=== PATIENT | male | born 1975 | race Caucasian/White ===

== ENCOUNTER 2016-03-11 11:12 | Emergency (ER) | payer SELFPAY ==
[~2016-03-11] VITALS: Ht 180.3 cm; Wt 90.7 kg
[~2016-03-11 11:12] MED LIST: CEPH-264 PO; DEXT20TA2 PO; HYDR-971 PO; HYDR16TA PO; IBUP-1007 PO; IBUP-1027 PO; LORA2TAB PO; ONDA4TAB7 PO; OXYC-323 PO; OXYC5TAB PO; PHEN100C PO; SENN-37 PO; SULF1TAB24 PO
[2016-03-11 11:27] VITALS: BP 145/68
--- NOTE | 2016-03-11 12:31 | PHYS DOC ---
Past Medical History Past Medical History: Anxiety Additional Past Medical Histor: adhd; endocarditis; chronic back pain. Past Surgical History: Other Additional Past Surgical Histo: hernia, left collar bone Alcohol Use: None Drug Use: None Adult General Chief Complaint Chief Complaint: PAIN ON URINATION [facility] HPI Patient is a 41 year old male presents emergency department stating that he urinated only twice this week. Patient states that he has been forcing fluids. He states this morning when he got up he was unable to urinate as well. He states that he had torn some warm water over the penile area in order to get himself to urinate. Patient denies any history of prostate problems. He denies any family history of prostate issues. Patient does state he has a history of smoking. Patient denies any he now drainage or discharge. Review of Systems Review of Systems Constitutional: Denies fever or chills [] Eyes: Denies change in visual acuity, redness, or eye pain [] HENT: Denies nasal congestion or sore throat [] Respiratory: Denies cough or shortness of breath [] Cardiovascular: No additional information not addressed in HPI [] GI: Denies abdominal pain, nausea, vomiting, bloody stools or diarrhea [] : dysuria denies hematuria [] Musculoskeletal: Denies back pain or joint pain [] Integument: Denies rash or skin lesions [] Neurologic: Denies headache, focal weakness or sensory changes [] Allergies Allergies Allergies Coded Allergies Type Severity Reaction Last Updated Verified ketorolac Adverse Reaction Mild headache 01/20/16 Yes tramadol Adverse Reaction Mild headache 01/20/16 Yes Physical Exam Physical Exam Constitutional: Well developed, well nourished, no acute distress, non-toxic appearance. [] HENT: Normocephalic, atraumatic, bilateral external ears normal, oropharynx moist, no oral exudates, nose normal. [] Eyes: PERRLA, EOMI, conjunctiva normal, no discharge. [] Neck: Normal range of motion, no tenderness, supple, no stridor. [] Cardiovascular:Heart rate regular rhythm, no murmur [] Lungs & Thorax: Bilateral breath sounds clear to auscultation [] Abdomen: Bowel sounds normal, soft, no tenderness, no masses, no pulsatile masses. [] Skin: Warm, dry, no erythema, no rash. [] Back: No tenderness Extremities: No tenderness, no cyanosis, no clubbing, ROM intact, no edema. [] Neurologic: Alert and oriented X 3, normal motor function, normal sensory function, no focal deficits noted. [] Psychologic: Affect normal, judgement normal, mood normal. [] Patient was noted with left testicle to be higher than the right. Increase tenderness noted to the right testicle. Negative cremasteric reflux Current Patient Data Vital Signs Vital Signs Date Time Temp Pulse Resp B/P Pulse Ox O2 Delivery O2 Flow Rate FiO2 03/11/16 11:27 98.2 81 18 98 Room Air 98.2 Lab Values Laboratory Tests Test 03/11/16 13:45 Sodium Level 139mmol/L (136-145) Potassium Level 3.8mmol/L (3.5-5.1) Chloride Level 101mmol/L (98-107) Carbon Dioxide Level 28mmol/L (21-32) Anion Gap 10 (6-14) Blood Urea Nitrogen 12mg/dL (8-26) Creatinine 1.0mg/dL (0.7-1.3) Estimated GFR (Cockcroft-Gault) 82.3 BUN/Creatinine Ratio 12 (6-20) Glucose Level 75mg/dL (70-99) Calcium Level 8.3mg/dL (8.5-10.1) L Total Bilirubin 0.9mg/dL (0.2-1.0) Aspartate Amino Transferase (AST) 44U/L (15-37) H Alanine Aminotransferase (ALT) 83U/L (16-63) H Alkaline Phosphatase 90U/L (46-116) Total Protein 8.0g/dL (6.4-8.2) Albumin 3.5g/dL (3.4-5.0) Albumin/Globulin Ratio 0.8 (1.0-1.7) L Laboratory Tests 03/11/16 13:45 EKG EKG [] Radiology/Procedures Radiology/Procedures [][facility] [address] [place], [place] [id number] IMAGING REPORT Signed PATIENT: JEFFERY WITT ACCOUNT: [id number] : 1975 LOCATION: ER AGE: 41 SEX: M EXAM STATUS: REG ER ORD. PHYSICIAN: BOBO FERNANDEZ NP REASON: testicular pain PROCEDURE: TESTICULAR/SCROTUM Scrotal ultrasound, 03/11/2016: History: Testicular pain The right testicle measures 5.0 x 3.2 x 2.4 cm while the left testicle measures 4.2 x 2.5 x 1.8 cm. There is no evidence of a testicular mass. There is symmetric blood flow within the testicles. No epididymal abnormality is seen. There is no significant hydrocele. IMPRESSION: No significant abnormality is detected. DICTATED and SIGNED BY: AMIRAH CYR MD DATE: 03/11/16 3818 CC: BOBO FERNANDEZ HEEL VARNISHER; NO PCP ~ Course & Med Decision Making Course & Med Decision Making Pertinent Labs and Imaging studies reviewed. (See chart for details) Patient denies any use of any type of antihistamines. CMP was normal. Creatinine was 1.0. Ultrasound of the testicular/scrotum was normal. Bladder scanner was 224 ml for urine retention. Patient will obtain a urine catheter and be sent home to follow up with urology. Patient agrees with discharge instructions treatment regimens and follow-up recommendations. Signs and symptoms to return back to the emergency department has been provided. [] Dragon Disclaimer Dragon Disclaimer This electronic medical record was generated, in whole or in part, using a voice recognition dictation system. Departure Departure Impression: Primary Impression: Urine retention Disposition: HOME, SELF-CARE Condition: STABLE Referrals: NO PCP (PCP) JEFFERY KING MD Patient Instructions: Urinary Retention, Acute, Male, [id number] Additional Instructions: Activity as tolerated. Continue to drink plenty of fluids. Avoid carbonated beverages citrus fruits alcohol and carbonated beverages. Patient was provided with urologist to follow-up with within the week. Return back to emergency department sign symptoms of become worse. BOBO FERNANDEZ NP Mar 11, 2016 12:31
--- NOTE | 2016-03-11 13:36 | RAD ---
Scrotal ultrasound, 03/11/2016: History: Testicular pain The right testicle measures 5.0 x 3.2 x 2.4 cm while the left testicle measures 4.2 x 2.5 x 1.8 cm. There is no evidence of a testicular mass. There is symmetric blood flow within the testicles. No epididymal abnormality is seen. There is no significant hydrocele. IMPRESSION: No significant abnormality is detected.
[2016-03-11 13:58] LABS: CALCIUM 8.3 mg/dL (8.5-10.1); GFR 82.3; POTASSIUM 3.8 mmol/L (3.5-5.1)
[2016-03-11 14:04] LABS: ALBUMIN 3.5 g/dL (3.4-5.0); ALBUMIN/GLOBULIN RATIO 0.8 (1.0-1.7); TOTAL BILIRUBIN 0.9 mg/dL (0.2-1.0)
== END 2016-03-11 14:59 | disposition home or self-care (01) ==
LOC: ER 11:12
DX: R33.9 Retention of urine, unspecified (principal); N50.89 Other specified disorders of the male genital organs; F90.9 Attention-deficit hyperactivity disorder, unspecified type; F41.9 Anxiety disorder, unspecified; G89.29 Other chronic pain; Z87.891 Personal history of nicotine dependence; Z88.8 Allergy status to other drugs, medicaments and biological substances; Z88.5 Allergy status to narcotic agent
CPT/HCPCS: 36415; 51702; 76870; 80053; 99285-25

== ENCOUNTER 2016-10-16 13:29 | Emergency (ER) | payer MEDICAID ==
[~2016-10-16] VITALS: Ht 180.3 cm; Wt 95.3 kg
[2016-10-16] MEDS ORDERED: GABAPENTIN 300 MG CAPSULE. PO STA (14:08)
[2016-10-16 14:33] VITALS: BP 147/71
--- NOTE | 2016-10-16 14:38 | RAD ---
Exam performed: CT scan of the head without contrast. Date of Service: 10/16/16. Comparison: CT head without contrast from 04/22/13. Clinical History: Dizziness and syncope. Technique: Helical acquisitions are obtained from the foramen magnum to the vertex without intravenous administration of contrast. Findings: The ventricles are midline without evidence of dilatation. Normal greer-white differentiation is maintained. There is no extra axial fluid collection, intraparenchymal hemorrhage or mass lesion. Mucoperiosteal thickening involving the left maxillary sinus The visualized portions of the orbits and the mastoid air cells appear clear. The calvarium is intact. Impression: 1. No acute intracranial process detected. Chronic left maxillary sinus disease is noted. PQRS Compliance Statement: One or more of the following individualized dose reduction techniques were utilized for this examination: 1. Automated exposure control 2. Adjustment of the mA and/or kV according to patient size 3. Use of iterative reconstruction technique
[2016-10-16] MEDS ORDERED: ACETAMINOPHEN 325 MG TABLET. PO ONE (14:45)
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
== END 2016-10-16 15:31 | disposition home or self-care (01) ==
LOC: ER 13:29
DX: S09.90XA Unspecified injury of head, initial encounter (principal); R56.9 Unspecified convulsions; F41.9 Anxiety disorder, unspecified; G89.29 Other chronic pain; F90.9 Attention-deficit hyperactivity disorder, unspecified type; Z88.5 Allergy status to narcotic agent; Z88.8 Allergy status to other drugs, medicaments and biological substances; Z91.14 Patient's other noncompliance with medication regimen; Y08.89XA Assault by other specified means, initial encounter; Y93.89 Activity, other specified; Y92.89 Other specified places as the place of occurrence of the external cause; Y99.8 Other external cause status
CPT/HCPCS: 36415; 70450; 99284-25